=== PATIENT | female | born 1990 | race African-American/Black ===

== ENCOUNTER 2017-07-14 18:34 | Emergency (ER) | payer OTHER ==
[2017-07-14 19:41] LABS: URINE HCG POC HCG NEGATIVE (Negative)
== END 2017-07-14 20:37 | disposition home or self-care (01) ==
LOC: ER 18:34
DX: S80.02XA Contusion of left knee, initial encounter (principal); M25.561 Pain in right knee; W18.30XA Fall on same level, unspecified, initial encounter; Y93.89 Activity, other specified; Y99.8 Other external cause status; Y92.89 Other specified places as the place of occurrence of the external cause
CPT/HCPCS: 73562; 81025; 99284